=== PATIENT | female | born 1990 | race African-American/Black ===

== ENCOUNTER 2020-07-02 13:33 | Emergency (ER) | payer OTHER, SELFPAY ==
[2020-07-02] VITALS (8 sets, daily range): BP systolic 143–150; BP diastolic 96–107; PULSE 57–78; RESP 16–22; TEMP 36.8; O2SAT 98–100
--- NOTE | ~2020-07-02 | CT_ITS ---
EXAMINATION: CTA chest PE protocol EXAM DATE: 07/02/2020 15:24 INDICATION: chest pain and positive d-dimer. TECHNIQUE: Spiral CTA of the chest (pulmonary arteries) was performed with 100 cc Omnipaque 350 intr avenous contrast injection. Images were acquired during the pulmonary arterial phase. Coronal maxi mum intensity projection 3D-reconstructions were created by the technologist on dedicated workstation . Axial, coronal and sagittal reformatted images were reviewed. The dose-length product (DLP) for t his examination was 294.84 mGy-cm. The exposure was tailored according to patient size (auto mA exp osure control), and iterative reconstruction (ASIR) was used as additional dose reduction technique. Comparison is made to prior examination from 07/12/2018. FINDINGS: Pulmonary arteries are well opacified and without intraluminal filling defects. No thora cic aortic dissection. The lungs are clear. There are no pleural or pericardial effusions. Trach eobronchial tree is patent. There is bilateral axillary lymphadenopathy, with a right axillary lymp h node measuring 1.8 x 1.3 cm without fatty hilum, a left axillary lymph node measuring 2.0 x 1.6 cm, with a fatty hilum. These nodes have become enlarged compared to 2018 study. No mediastinal or hilar lymphadenopathy. The upper portion of the abdomen was imaged, no evidence of upper retroperitoneal l ymphadenopathy. There is no pneumothorax. Heart normal in size. No evidence of coronary arterial calcification. There is 2.5 cm left renal lesion most likely a cyst, and a 1.8 cm right renal lesion , probably a cyst. There is thoracic spondylosis without osteoblastic or osteolytic lesions identifi ed. IMPRESSION: 1. No pulmonary emboli or acute findings. 2. Interval development of mild bilateral axillary lymphadenopathy, could be reactive. Sarcoidosis, lymphoma or other granulomatous process not excludable. Reviewed, dictated and finalized at location B. IMPRESSION: 1. No pulmonary emboli or acute findings. 2. Interval development of mild bilateral axillary lymphadenopathy, could be r eactive. Sarcoidosis, lymphoma or other granulomatous process not excludable.
--- NOTE | ~2020-07-02 | XR_ITS ---
XR chest 2V DATE: 07/02/2020 14:19 INDICATION: Chest pain. Acid reflux. TECHNIQUE: PA and lateral views COMPARISON: 07/12/2018 CT pulmonary scan 07/11/2018 two-view chest FINDINGS: Heart size within normal range. No hilar or mediastinal enlargement. No pulmonary infiltrat e or consolidation, pleural effusion or pulmonary vascular congestion or pneumothorax. Included skele ortega structures are unremarkable. IMPRESSION: No active cardiopulmonary disease Reviewed, dictated and finalized at location A.
--- NOTE | 2020-07-02 13:50 | ECG_ITS ---
Measurements Intervals [place] Rate: 66 P: 55 VT: 176 QRS: -1 QRSD: 104 T: 29 QT: 415 QTc: 437 Interpretive Statements SINUS RHYTHM WITH SINUS ARRHYTHMIA DELAYED PRECORDIAL R/S TRANSITION BORDERLINE ECG Electronically Signed On 07-02-2020 14:27:25 CDT by Manjeet Perla D.O.
--- NOTE | 2020-07-02 13:54 | ED.CHESTPAIN ---
HPI - Chest Pain General Chief Complaint: Chest Pain Stated Complaint: CP Time Seen by Provider: 07/02/20 13:54 Source: patient Mode of arrival: ambulatory Limitations: no limitations History of Present Illness HPI narrative: Patient is a 29-year-old female who presents for evaluation of chest pain. Chest pain began on Monday, has been constant over the past 4 days. Patient states it is a burning type pain in the center of her chest. No radiation to the jaw or shoulder. No associated shortness of breath. No pain with deep inspiration. No calf pain or calf swelling. No recent long car or air travel, and patient denies any recent surgeries or history of a blood clot. She did start a new control patch last week. She does not smoke. Patient denies palpitations or lower leg edema. Patient does not have a history of hypertension or hyperlipidemia to her knowledge. No family history of sudden cardiac . Pain is not positional. She states this is happened once before in the past and this was attributed to acid reflux. She does take omeprazole for this Related Data Home Medications Medication Instructions Recorded Confirmed dupilumab [Dupixent Pen] 300 mg SUBCUT ONCE 07/02/20 hydroxyzine HCl 25 mg PO BID PRN 07/02/20 montelukast [Singulair] 10 mg PO DAILY 07/02/20 norelgestromin-ethin.estradiol patch 07/02/20 07/02/20 [Xulane] omeprazole 40 mg PO DAILY 07/02/20 Allergies Allergy/AdvReac Type Severity Reaction Status Date / Time No Known Allergies Allergy Verified 07/02/20 13:43 Review of Systems Review of Systems: Narrative: CONSTITUTIONAL: Denies fever, chills ENT: Denies rhinorrhea, congestion CARDIOVASCULAR: Reports chest pain without palpitations or edema RESPIRATORY: Denies cough or dyspnea. GASTROINTESTINAL: Denies abdominal pain, nausea, vomiting, or diarrhea. GENITOURINARY: Denies dysuria or hematuria. SKIN: Denies rash or itching. MUSCULOSKELETAL: Denies back pain, joint pain, or myalgia. NEUROLOGIC: Denies headache, numbness, or weakness. [facility] Past Medical History Medical History (Updated 07/02/20 @ 15:46 by Cynthia Rhoades MD) Acid reflux Social History Social History (Updated 07/02/20 @ 14:13 by Cynthia Rhoades MD) Smoking status: Never smoker Alcohol intake: never Substance use: never Gender identity (if verbalized by the patient): Female Exam Narrative: Exam Narrative: GENERAL: Awake, alert, conversant HEAD: Normocephalic, atraumatic. EYES: PERRLA and EOMI. ENT: Nares clear, no rhinorrhea or epistaxis. Mucous membranes moist. NECK: Supple. CHEST: No respiratory distress, breathing even and non labored, no reproducible chest wall pain HEART: Regular rate, sinus rhythm ABDOMEN:Non distended, non tender EXTREMITIES: Normal range of motion. No edema. No calf tenderness bilaterally. SKIN: Warm, dry, no rash. NEURO:No focal deficits. Alert and oriented x3 Course Vital Signs Vital signs: Vital Signs Temperature 36.8 C 07/02/20 13:41 Pulse Rate 78 07/02/20 13:41 Respiratory Rate 20 07/02/20 13:41 Blood Pressure 143/96 H 07/02/20 13:41 Pulse Oximetry 100 07/02/20 13:41 Temperature 36.8 C 07/02/20 13:41 Pulse Rate 65 07/02/20 15:01 Respiratory Rate 22 H 07/02/20 15:01 Blood Pressure 146/107 H 07/02/20 15:01 Pulse Oximetry 100 07/02/20 13:51 MDM - Chest Pain MDM Narrative Medical decision making narrative: Patient presenting for evaluation of burning type X chest pain in the central chest. At the time of assessment, ABCs are intact, patient is mildly hypertensive. Laboratory results are reassuring. No elevation in troponin, patient does have an elevated d-dimer, thus a CTA was obtained and is negative for PE. Patient does have some lymphadenopathy noted on CT scan which is new compared to previous CT scan, and I explained this to the patient, they importance of close follow-up with her primary care physician to monitor t
[2020-07-02] MEDS: ASPIRIN 81 MG CHEWABLE TABLET 324 MG PO (13:57)
[2020-07-02 14:02] LABS: Basophils Percent Auto 0.4 % (0.2-1.2); Eosinophils Absolute Auto 0.2 K/mm3 (0-0.3); Eosinophils Percent Auto 2.2 % (0-4.4); Hematocrit 39.6 % (37.0-47.0); Hemoglobin 13.6 g/dL (12.0-15.0); Immature Granulocyte Absolute 0.02 K/mm3 (0.00-0.031); Immature Granulocyte Percent A 0.2 % (0-0.5); Lymphocytes Percent Auto 21.8 % (18.3-44.2); Mean Corpuscular HGB Conc 34.3 g/dl (32-36); Mean Corpuscular Hemoglobin 28.6 pg (26-34); Mean Corpuscular Volume 83.4 fl (80-100); Monocytes Absolute Auto 0.9 K/mm3 (0.1-0.6); Monocytes Percent Auto 9.8 % (2.6-8.5); Neutrophils Absolute Auto 6.3 K/mm3 (1.3-6.7); Neutrophils Percent Auto 65.6 % (45.5-73.1); Platelet Count Result 302 k/mm3 (150-375); Red Blood Count 4.75 M/mm3 (4.2-5.4); White Blood Count 9.6 K/mm3 (4.5-10.0)
[2020-07-02 14:12] LABS: INR 1.1; Prothrombin Time 13.8 Seconds (11.1-14.7)
[2020-07-02 14:13] LABS: Partial Thromboplastin Time 26.7 SECONDS (22.3-36.8)
[2020-07-02 14:16] LABS: Anion Gap 10 mmol/L (8-16); Blood Urea Nitrogen 9 mg/dL (7-17); Calcium 9.2 mg/dL (8.4-10.2); Carbon Dioxide 26 mmol/L (22-30); Chloride 105 mmol/L (98-107); Estimated CRCL calculation 82 ml/min; Estimated Glomerular Filt Rate > 60; Glucose 82 mg/dL (65-105); Potassium 3.8 mmol/L (3.4-5.0); Sodium 141 mmol/L (137-145)
--- NOTE | 2020-07-02 14:16 | PC.NURSE ---
PT IN RADIOLOGY WILL MEDICATE PER PROVIDER ORDER UPON RETURN.
[2020-07-02 14:26] LABS: D Dimer 1.91 ug/mL (<0.48)
[2020-07-02 14:27] LABS: Troponin I < 0.012 ng/mL (0.000-0.034)
[2020-07-02] MEDS: ACETAMINOPHEN 500 MG TABLET 1000 MG PO (14:33)
== END 2020-07-02 16:34 | disposition home or self-care (01) ==
PROVIDERS: Emergency Provider Emergency Medicine; PCP Physician Assistant
DX: R07.89 Other chest pain (principal); R59.1 Generalized enlarged lymph nodes; K21.9 Gastro-esophageal reflux disease without esophagitis; R94.31 Abnormal electrocardiogram [ECG] [EKG]
CPT/HCPCS: 36415; 71046; 71275; 80048; 81025; 84484; 85025; 85380; 85610; 85730; 93005; 99284; A9270; Q9967

== ENCOUNTER 2021-05-24 11:55 | Outpatient (CLI) | payer OTHER, SELFPAY ==
--- NOTE | ~2021-05-24 | CT_ITS ---
EXAMINATION: CT cervical spine wo con DATE: 05/24/2021 12:12 INDICATION: Cervical radiculopathy. TECHNIQUE: Computed tomography (CT) of the cervical spine was performed without intravenous contrast. Automated exposure control and iterative reconstruction technique were employed. The dose-length pro duct was 250.31 mGy-cm. COMPARISON: None FINDINGS: There is mild kyphosis of cervical spine. Vertebral body heights and intervertebral disc he ights are normal. The following disc levels are specifically discussed: C2-C3 through C6-C7: There is no uncovertebral joint osteoarthritis. There is no facet joint osteoart hritis. There is no neural foraminal stenosis. There is no central canal stenosis. C7-T1: There is no uncovertebral joint osteoarthritis. There is mild right and moderate left facet aldo int osteoarthritis. There is no neural foraminal stenosis. There is no central canal stenosis. IMPRESSION: 1. No etiology for the patient's symptoms. Reviewed, dictated and finalized at location A.
== END 2021-05-24 11:56 ==
LOC: MICIMG 11:59
PROVIDERS: PCP Nurse Practitioner; Visit Provider Nurse Practitioner
DX: M54.12 Radiculopathy, cervical region (principal)
CPT/HCPCS: 72125

== ENCOUNTER 2021-10-05 12:29 | Outpatient (CLI) | payer OTHER, SELFPAY ==
--- NOTE | ~2021-10-05 | XR_ITS ---
EXAMINATION: XR chest 2V DATE: 10/05/2021 12:51 INDICATION: Cough, history of COVID 19 TECHNIQUE: Frontal and lateral views of the chest are obtained COMPARISON: 07/02/2020 FINDINGS: The lungs are free of acute opacities. There is no pleural effusion or pneumothorax. The ca rdiomediastinal silhouette is normal. The visualized bones and soft tissues are unremarkable. IMPRESSION: 1. No acute cardiopulmonary abnormality. Reviewed, dictated and finalized at location F. [employer]
== END 2021-10-05 12:30 | disposition home or self-care (01) ==
LOC: ANHIMG 12:34
PROVIDERS: PCP Nurse Practitioner; Visit Provider Nurse Practitioner
DX: U07.1 COVID-19 (principal)
CPT/HCPCS: 71046

== ENCOUNTER 2022-09-28 20:37 | Emergency (ER) | payer OTHER, SELFPAY ==
[2022-09-28 20:55] VITALS: BP 140/96; PULSE 64; RESP 14; TEMP 36.6; O2SAT 100
[2022-09-28 21:33] VITALS: RESP 18
--- NOTE | 2022-09-28 21:37 | ED.GENADULT ---
HPI - General Adult General Chief complaint: Headache Stated complaint: ADAN Time Seen by Provider: 09/28/22 21:26 History of Present Illness HPI narrative: 32-year-old female presenting to the emergency department for evaluation of intermittent headache that been ongoing since Monday. Patient states at that same time she did develop some bilateral ear pressure and sinus congestion. Patient denies any coughs colds fevers. Patient denies any associated numbness or weakness. Patient describes the headache as a pressure at the back of her skull. Patient denies any significant previous history of migraines. Patient has been taking Tylenol for pain control in addition to Mucinex without significant improvement. Related Data Home Medications Medication Instructions Recorded Confirmed dupilumab 300 mg/2 mL subcutaneous 300 mg subcut ONCE 07/02/20 pen injector (Dupixent) hydroxyzine HCl 25 mg tablet 25 mg PO BID PRN Anxiety 07/02/20 montelukast 10 mg tablet 10 mg PO DAILY 07/02/20 (Singulair) norelgestromin 150 mcg-e.estradiol patch 07/02/20 07/02/20 35 mcg/24 hr weekly transderm patch (Xulane) omeprazole 40 mg capsule,delayed 40 mg PO DAILY 07/02/20 release Allergies Allergy/AdvReac Type Severity Reaction Status Date / Time No Known Allergies Allergy Verified 09/28/22 21:31 Review of Systems Review of Systems: CONSTITUTIONAL: Denies fever, chills, or sweats. EYES: Denies visual changes, redness, or discharge. ENT: See HPI CARDIOVASCULAR: Denies chest pain, palpitations, or edema. RESPIRATORY: Denies cough or dyspnea. GASTROINTESTINAL: Denies abdominal pain, nausea, vomiting, or diarrhea. GENITOURINARY: Denies dysuria or hematuria. SKIN: Denies rash or itching. MUSCULOSKELETAL: Denies back pain, joint pain, or myalgia. NEUROLOGIC: See HPI PMFSH Past Medical History Medical History (Updated 09/29/22 @ 00:00 by Liza Trejo) Acid reflux Social History Social History (Updated 07/02/20 @ 14:13 by Cynthia Rhoades MD) Smoking status: Never smoker Alcohol intake: never Substance use: never Gender identity (if verbalized by the patient): Female Exam Narrative: APPEARANCE: Well appearing, no pain, no distress, well-nourished. HEAD: normocephalic, atraumatic. Sinus tenderness to palpation EYES: PERRLA/EOMI, conjunctivae clear. NOSE: Normal no drainage EARS:TMS clear with good light reflex. THROAT: Pharynx clear, no exudate. NECK: Supple. No adenopathy, no masses. RESPIRATORY: Airway patent, respirations nonlabored. Clear to auscultation bilaterally, no rales, rhonchi, wheezing. CARDIOVASCULAR: Regular rate and rhythm without murmurs rubs or gallops. ABDOMINAL: Soft, nontender, nondistended, normal bowel sounds MUSCULOSKELETAL: Moves all extremities. Strength/ROM intact, No edema, No calf tenderness. NEURO: Alert. Cranial nerves II through XII intact. Normal forward and backward tandem gait. Normal comprehensive neuro exam. No ataxia. Negative Romberg SKIN: Warm, dry. Normal Color Course Course Emergency Course: Patient does have reproducible tenderness at the occipital nerves on posterior scalp. Patient does have reproducible tenderness over her sinuses. Patient has a normal comprehensive neuro exam. Patient is neurologically intact. Suspect sinusitis is the underlying etiology of her symptoms. With a normal neuro exam less likely differential includes migraine or intracranial etiology. Patient was updated on the plan for treatment. All question concerns were addressed. Patient was comfortable with the plan to have follow-up with her primary care physician. Vital Signs Vital signs: Vital Signs Temperature 97.8 F 09/28/22 20:55 Pulse Rate 64 09/28/22 20:55 Respiratory Rate 14 09/28/22 20:55 Blood Pressure 140/96 H 09/28/22 20:55 Pulse Oximetry 100 09/28/22 20:55 Oxygen Delivery Room Air 09/28/22 20:55 Temperature 97.8 F 09/28/22 20:55 Pulse
[2022-09-28] MEDS: KETOROLAC 30 MG/ML VIAL (*BKC) IM (21:50)
[2022-09-28 21:57] VITALS: PULSE 87; RESP 16; O2SAT 99
== END 2022-09-28 21:58 | disposition home or self-care (01) ==
PROVIDERS: Emergency Provider Emergency Medicine; PCP Nurse Practitioner
DX: R51.9 Headache, unspecified (principal); J32.9 Chronic sinusitis, unspecified; K21.9 Gastro-esophageal reflux disease without esophagitis
CPT/HCPCS: 81025; 96372; 99283; J1885

== ENCOUNTER → 2022-10-28 15:31 | Outpatient (CLI) | payer OTHER, SELFPAY ==
--- NOTE | ~2022-10-28 | CT_ITS ---
EXAMINATION: CT sinus wo con DATE: 10/28/2022 16:03 INDICATION: Chronic pansinusitis. TECHNIQUE: Computed tomography (CT) of the paranasal sinuses was performed without intravenous contra st. Iterative reconstruction technique was employed. The dose-length product was 290.62 mGy-cm. COMPARISON: None FINDINGS: The frontal, ethmoid, and sphenoid sinuses are clear. There is mild mucosal thickening in t he inferior maxillary sinuses. There is rightward deviation of the nasal septum. There is vicente bull rogelio involving the bilateral middle turbinates. The ostiomeatal units are patent. There is a Heather ce ll on the right. IMPRESSION: 1. Mild mucosal thickening in the inferior maxillary sinuses. Reviewed, dictated and finalized at location A. [employer]
== END ==
PROVIDERS: PCP Nurse Practitioner; Visit Provider Otolaryngology
DX: J32.4 Chronic pansinusitis (principal); J34.2 Deviated nasal septum
CPT/HCPCS: 70486

== ENCOUNTER 2022-11-15 12:12 | Emergency (ER) | payer OTHER, SELFPAY ==
--- NOTE | 2022-11-15 13:40 | PC.NURSE ---
PT NOT FOUND IN WAITING ROOM FOR TRIAGE
--- NOTE | 2022-11-15 15:00 | PC.NURSE ---
DNAP #3 LEFT WITHOUT BEING TRIAGED
== END 2022-11-15 13:40 | disposition left against medical advice (07) ==
PROVIDERS: PCP Nurse Practitioner
DX: Z53.21 Procedure and treatment not carried out due to patient leaving prior to being seen by health care provider (principal)
CPT/HCPCS: 99199

== ENCOUNTER 2024-09-22 15:23 | Emergency (ER) | payer OTHER, SELFPAY | END 2024-09-22 15:30 | disposition left against medical advice (07) | PROVIDERS: Emergency Provider Nurse Practitioner Family; PCP Nurse Practitioner | DX: Z53.21 Procedure and treatment not carried out due to patient leaving prior to being seen by health care provider (principal) | CPT/HCPCS: 99199 ==